=== PATIENT | female | born 1955 | race Caucasian/White ===

== ENCOUNTER 2023-01-10 08:35 | Day surgery (SDC) | payer OTHER ==
[2023-01-05 17:14] VITALS: BMI 41.1
[2023-01-10] MEDS ORDERED: CEFAZOLIN 2 GM in DEXTROSE 5%-WATER 100 ML IVPB ONE (09:00)
[2023-01-10] MEDS ORDERED: TRANEXAMIC ACID 1000 MG/10 ML VIAL IVPUSH ONE (10:00)
[2023-01-10 11:24] LABS: BILIRUBIN,TOTAL 0.8 mg/dl (0.2-1); CALCIUM 9.7 mg/dl (8.5-10); TOT PROT 7.5 g/dl (6.4-8.2)
[2023-01-10] MEDS ORDERED: ceFAZolin SODIUM 1 GM VIAL ONE (12:30)
[2023-01-10] MEDS ORDERED: PROPOFOL 40 ML ONE (12:37)
[2023-01-10] MEDS ORDERED: MIDAZOLAM HCL 2 MG/2 ML SINGLE DOSE VIAL ONE (12:53)
[2023-01-10] MEDS ORDERED: DEXAMETHASONE SOD PHOSPHATE 4 MG/1 ML VIAL ONE (12:53)
[2023-01-10] MEDS ORDERED: ONDANSETRON 4 MG/2 ML VIAL ONE ×2 (12:53→14:17)
[2023-01-10] MEDS ORDERED: BUPIVACAINE LIPOSOME/PF (EXPAREL) 266 MG/20 ML VIAL ONE (12:53)
[2023-01-10] MEDS ORDERED: BUPIVACAINE HCL/PF 0.5% (5MG/ML) 10 ML VIAL ONE (12:54)
[2023-01-10] MEDS ORDERED: MAG HYDROX/AL HYDROX/SIMETH 30 ML UNIT-DOSE CUP PO PRN (15:13)
[2023-01-10] MEDS ORDERED: ONDANSETRON 4 MG/2 ML VIAL IVPUSH PRN (15:13)
[2023-01-10] MEDS ORDERED: MAGNESIUM HYDROX 2400MG/30ML ORAL SUSPENSION 30 ML CUP PO PRN (15:13)
[2023-01-10] MEDS: ACETAMINOPHEN 1000 MG/100 ML BAG IVPB SCH ×2 (15:26→22:56)
[2023-01-10] MEDS ORDERED: oxyCODONE HCL 5 MG TABLET PO PRN (15:26)
[2023-01-10] MEDS: LACTATED RINGERS SOLUTION 1,000 ML IV SCH ×2 (15:53→16:00)
[2023-01-10 16:06] LABS: ALBUMIN 3.9 g/dl (3.4-5.0); BILIRUBIN,TOTAL 0.6 mg/dl (0.2-1); CALCIUM 9.2 mg/dl (8.5-10); TOT PROT 7.1 g/dl (6.4-8.2)
[2023-01-10 17:03] VITALS: RESP 18
[2023-01-10 17:32] LABS: VENOUS BASE EXCESS -0.6 mmol/L (-2-2); VENOUS O2 SATURATION 99.6 % (70-80); VENOUS PCO2 23.6 mmHg (38-52); VENOUS PH 7.543 (7.310-7.410)
[2023-01-10] MEDS: oxyCODONE HCL 5 MG TABLET PO PRN (20:18)
[2023-01-10] MEDS: CEFAZOLIN SODIUM 2 GM in DEXTROSE 5%-WATER 100 ML IVPB SCH (20:19)
[2023-01-10] MEDS ORDERED: ATORVASTATIN CA 10 MG TABLET (FP) PO SCH (22:00)
[2023-01-10] MEDS: SENNOSIDES/DOCUSATE COMBO (SENNA PLUS) TABLET (UD) PO SCH (22:53)
[2023-01-10] MEDS: FAMOTIDINE 20 MG TABLET PO SCH (22:53)
[2023-01-10] MEDS: ASPIRIN 81 MG CHEWABLE TABLETS PO SCH (22:53)
[2023-01-10] MEDS: INSULIN SLIDING SCALE (NOVOLOG) 1 VIAL SQ SCH (23:05)
[2023-01-11] MEDS: CEFAZOLIN SODIUM 2 GM in DEXTROSE 5%-WATER 100 ML IVPB SCH (04:18)
[2023-01-11] MEDS: oxyCODONE HCL 5 MG TABLET PO PRN ×4 (04:30→15:33)
[2023-01-11] MEDS: ACETAMINOPHEN 1000 MG/100 ML BAG IVPB SCH ×2 (06:26→16:24)
[2023-01-11] MEDS: INSULIN SLIDING SCALE (NOVOLOG) 1 VIAL SQ SCH ×2 (06:31→11:16)
[2023-01-11] MEDS: ASPIRIN 81 MG CHEWABLE TABLETS PO SCH (09:20)
[2023-01-11] MEDS: FAMOTIDINE 20 MG TABLET PO SCH (09:20)
[2023-01-11] MEDS: SENNOSIDES/DOCUSATE COMBO (SENNA PLUS) TABLET (UD) PO SCH (09:21)
[2023-01-11] MEDS ORDERED: RABEPRAZOLE SODIUM 20 MG PO SCH (10:00)
[2023-01-11] MEDS ORDERED: HYDROCHLOROTHIAZIDE 25 MG TABLET (FP) PO SCH (10:00)
[2023-01-11] MEDS ORDERED: ATENOLOL 50 MG TABLET (FP) PO SCH (10:00)
[2023-01-11] MEDS ORDERED: DEXAMETHASONE 4 MG TABLET (FP) PO ONE (10:00)
[2023-01-11] MEDS ORDERED: ALLOPURINOL 100 MG TABLET (FP) PO SCH (10:00)
[2023-01-11] MEDS ORDERED: MULTIVITAMINS (DAILY MVI) TABLET (FP) PO SCH (10:00)
[2023-01-11] MEDS ORDERED: PATIENT'S OWN MEDICATION (NON-FORMULARY) (Empagliflozin 25 MG Tablet) PO SCH (10:00)
[2023-01-11] MEDS ORDERED: metFORMIN HCL 500 MG TABLET (FP) PO SCH (10:00)
[2023-01-11] MEDS ORDERED: RAMIPRIL 5 MG CAPSULE PO SCH (10:00)
[2023-01-11 14:37] VITALS: BP 128/59; PULSE 83; TEMP 98.3
== END 2023-01-11 16:33 | disposition home or self-care (01) ==
LOC: FASUSAT 08:35 → FM/S 16:12 → FASUSAT 01-11 16:33
PROVIDERS: ATTEND Orthopaedic Surgery
PROC: 0SRD0J9 Replacement of Left Knee Joint with Synthetic Substitute, Cemented, Open Approach (ICD-10-PCS; principal; 2023-01-10 12:48)
DX: M17.12 Unilateral primary osteoarthritis, left knee (principal)
CPT/HCPCS: 27447; C1776; 36415; 73560-TC-LT-FY; 80053; 82010; 82803; 82962; 94760; 97010-GP; 97116-GP; 97162-GP; C1889